=== PATIENT | male | born 2000 | race Caucasian/White ===

== ENCOUNTER 2022-05-09 23:12 | Observation (INO) | payer OTHER ==
[2022-05-09] MEDS ORDERED: Sodium Chloride 0.9% 1000 ML 1,000 ML IV STA (23:42)
[2022-05-10] LABS: Absolute Neutrophil Ct (ANC) 4.59 x10^3/uL (1.4-6.9); Basophil (Absolute #) 0.05 x10^3/uL (0-0.4); Eosinophil % 1.6 % (0.00-5.0); Eosinophil (Absolute #) 0.13 x10^3/uL (0-0.5); Hematocrit 43.7 % (42-50); Lymphocyte (Absolute #) 2.65 x10^3/uL (1.0-4.6); Lymphocytes % 32.9 % (24.0-44.0); Mean Cell Volume 87.6 fL (78-100); Mean Corpuscular Hemoglobin 30.1 pg (26-32); Mean Corpuscular Hgb Concent. 34.3 g/dL (32-36); Monocyte (Absolute #) 0.61 x10^3/uL (0.0-1.3); Monocytes % 7.6 % (0.0-12.0); Neutrophil % 57.1 % (36.0-66.0); Platelet Count 233 x10^3/uL (150-450); Red Blood Count 4.99 x10^6/uL (4.1-5.6); Red Cell Distribution Width 11.9 % (11.5-14.0); White Blood Count 8.1 x10^3/uL (4.0-10.5)
[2022-05-10] MEDS ORDERED: Sodium Chloride 0.9% 1000 ML 1,000 ML ONE (00:01)
[2022-05-10 00:14] LABS: ACETAMINOPHEN 13 ug/ml (10-30); ALBUMIN 4.2 g/dL (3.5-5.0); ALKALINE PHOSPHATASE 99 U/L (38-126); BLOOD UREA NITROGEN 9 mg/dL (9-20); CHLORIDE 105 mmol/L (98-107); Carbon Dioxide 23 mmol/L (22-30); Creatinine 1 0.66 mg/dL (0.66-1.25); EST GLOMERULAR FILTRATION RATE > 60.0 ML/MIN; ETHYL ALCOHOL < 10 mg/dL (0-10); Glucose 100 mg/dL (74-106); Potassium 3.7 mmol/L (3.5-5.1); SALICYLATE < 1.0 mg/dL (2-20); SGOT/AST 25 U/L (17-59); SGPT/ALT 20 U/L (0-50); SODIUM 137 mmol/L (137-145)
--- NOTE | 2022-05-10 00:46 | ERPHSYRPT ---
- History of Present Illness Time Seen by Provider: 05/09/22 23:19 Source: patient Exam Limitations: no limitations Patient Subjective Stated Complaint: pt states he took an unknown amount of his o wn medications and some of is room mates medications. Triage Nursing Assessment: pt alert and oriented, answers questions approp. pt arrive per ambulance and transfers to stretcher per slef. respiraions nonlabored. skin warm and dry. heart rate 80 on monitor, sinus rhythm. Physician History: 22 years old inmate is brought to the ER by EMS with PD after he admitted overdosing on some of his own medication and some of his friend meds almost an hour prior to arrival. Patient apparently took Norvasc, prazosin, Zoloft, Ke ppra unknown amount. Reports having mild chest tightness and minimal shortness of breath with feeling of grogginess/sleepiness. He is answering questions appropriately. Patient is not in any distress. Does report having similar attempts in the past. Reports doing this because he is frustrated and has worsening of depression. Timing/Duration: hour(s) (1) Suicidal thoughts: attempt, ingestion Associated Symptoms: depressed, frustrated, ingestion Previous symptoms: same symptoms as today Allergies/Adverse Reactions: No Known Drug Allergies Allergy (Verified 05/09/22 23:50) Home Medications: Levetiracetam 250 MG [Keppra 250 MG] 250 mg PO BID 05/09/22 [History] Prazosin HCl [Minipress] 1 mg PO HS 05/09/22 [History] Sertraline HCl 50 mg [Zoloft 50 mg Tablet] 50 mg PO DAILY 05/09/22 [History] Hx Tetanus, Diphtheria Vaccination/Date Given: Yes Hx Influenza Vaccination/Date Given: Yes Immunizations Up to Date: Yes Travel Risk - International Travel Have you traveled outside of the country in past 3 weeks: No - Coronavirus Screening Are you exhibiting any of the following symptoms?: No Close contact with a COVID-19 positive Pt in past 14-21 Days: No - Vaccine Status Have you recieved a Covid-19 vaccination: No - Past Medical History Neurological History: Seizures Other Medical History: heart murmer, 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 - Past Surgical History Past Surgical History: Yes - Social History Smoking Status: Former smoker Exposure to second hand smoke: No Drug Use: none Patient Lives Alone: No - Review of Systems Constitutional: No Symptoms Eyes: No Symptoms Ears, Nose, & Throat: No Symptoms Respiratory: Dyspnea Cardiac: Chest Pain Abdominal/Gastrointestinal: No Symptoms Genitourinary Symptoms: No Symptoms Musculoskeletal: No Symptoms Skin: No Symptoms Neurological: No Symptoms Psychological: Anxiety, Depression, Suicidal Ideations Endocrine: No Symptoms Hematologic/Lymphatic: No Symptoms Immunological/Allergic: No Symptoms - Nursing Vital Signs Nursing Vital Signs: Initial Vital Signs Temperature 98.3 F 05/09/22 23:16 Pulse Rate 78 05/09/22 23:16 Respiratory Rate 16 05/09/22 23:16 Blood Pressure 132/80 05/09/22 23:16 O2 Sat by Pulse Oximetry 96 05/09/22 23:16 Pain Scale Pain Intensity 6 - Physical Exam General Appearance: no apparent distress, alert, anxiety Eyes, Ears, Nose, Throat Exam: normal ENT inspection Neck Exam: normal inspection, non-tender, supple, full range of motion Respiratory Exam: normal breath sounds, lungs clear Cardiovascular Exam: regular rate/rhythm, normal heart sounds Gastrointestinal/Abdominal Exam: soft, normal bowel sounds, No tenderness Extremities Exam: normal inspection, normal range of motion Current Suicidality: has suicide plan Neurological Exam: alert, calm, oriented x 3, No normal mood/affect Appearance: appropriate appearance, appropriate insight, neat, no memory impairment Behavior/Eye Contact/Speech: alert & cooperative, cooperative, good eye contact Thoughts/Hallucinations: normal thought pattern, no apparent hallucination Skin Exam: normal color SpO2 Interpretation: normal SpO2: 96 O2 Delivery: Room Air - Course EKG Interpreted by Me: RATE (75), Sinus Rhythm, NORMAL AXIS, NORMAL INTERVALS, NORMAL QRS Ordered Tests: Active Orders 24 hr Category Date Time Status Film Technician STAT Care 05/09/22 23:43 Active EKG-ER Only STAT Care 05/09/22 23:42 Active IV Insertion STAT Care 05/09/22 23:42 Active NPO (ED) STAT Care 05/09/22 23:42 Active ACETAMINOPHEN Stat Lab 05/09/22 23:57 Completed CBC W DIFF Stat Lab 05/09/22 23:57 Completed CMP Stat Lab 05/09/22 23:57 Completed ETHYL ALCOHOL Stat Lab 05/09/22 23:57 Completed SALICYLATE Stat Lab 05/09/22 23:57 Completed TROPONIN Q4H Lab 05/09/22 00:03 Received TROPONIN Q4H Lab 05/10/22 03:45 Ordered TROPONIN Q4H Lab 05/10/22 07:45 Ordered UA W/RFX CULTURE Stat Lab 05/09/22 Ordered Urine Triage Profile Stat Lab 05/09/22 23:43 Ordered Transfer Order Routine Transfer 05/10/22 Ordered Medication Summary Discontinued Medications Generic Name Dose Route Start Last Admin Trade Name Lisandro PRN Reason Stop Dose Admin Sodium Chloride 1,000 mls @ 999 mls/hr 05/09/22 23:42 05/10/22 00:02 Sodium Chloride 0.9% 1000 Ml IV 05/10/22 00:42 999 mls/hr .Q1H1M STA Administration Sodium Chloride Confirm 05/10/22 00:01 Sodium Chloride 0.9% 1000 Ml Administered 05/10/22 00:02 Dose 1,000 mls @ ud .ROUTE .STK-MED ONE Lab/Rad Data: Laboratory Result Diagrams 05/09/22 23:57 05/09/22 23:57 Laboratory Results 05/09/22 05/09/22 05/09/22 Range/Units 23:57 23:57 00:03 WBC 8.1 (4.0-10.5) x10^3/uL RBC 4.99 (4.1-5.6) x10^6/uL Hgb 15.0 (12.5-18.0) g/dL Hct 43.7 (42-50) % MCV 87.6 (78-100) fL MCH 30.1 (26-32) pg MCHC 34.3 (32-36) g/dL RDW 11.9 (11.5-14.0) % Plt Count 233 (150-450) x10^3/uL MPV 9.0 (7.5-11.0) fL Gran % 57.1 (36.0-66.0) % Immature Gran % (Auto) 0.2 (0.00-0.4) % Nucleat RBC Rel Count 0.0 (0.00-0.1) % Eos # (Auto) 0.13 (0-0.5) x10^3/uL Immature Gran # (Auto) 0.02 (0.00-0.03) x10^3u/L Absolute Lymphs (auto) 2.65 (1.0-4.6) x10^3/uL Absolute Monos (auto) 0.61 (0.0-1.3) x10^3/uL Absolute Nucleated RBC 0.00 (0.00-0.01) x10^3u/L Lymphocytes % 32.9 (24.0-44.0) % Monocytes % 7.6 (0.0-12.0) % Eosinophils % 1.6 (0.00-5.0) % Basophils % 0.6 (0.0-0.4) % Absolute Granulocytes 4.59 (1.4-6.9) x10^3/uL Basophils # 0.05 (0-0.4) x10^3/uL Sodium 137 (137-145) mmol/L Potassium 3.7 (3.5-5.1) mmol/L Chloride 105 (98-107) mmol/L Carbon Dioxide 23 (22-30) mmol/L Anion Gap 13.0 (5-15) MEQ/L BUN 9 (9-20) mg/dL Creatinine 0.66 (0.66-1.25) mg/dL Estimated GFR > 60.0 ML/MIN Glucose 100 (74-106) mg/dL Calcium 9.0 (8.4-10.2) mg/dL Total Bilirubin 1.00 (0.2-1.3) mg/dL AST 25 (17-59) U/L ALT 20 (0-50) U/L Alkaline Phosphatase 99 (38-126) U/L Troponin I < 0.012 (0.000-0.034) ng/mL Serum Total Protein 7.0 (6.3-8.2) g/dL Albumin 4.2 (3.5-5.0) g/dL Salicylates < 1.0 L (2-20) mg/dL Acetaminophen 13 (10-30) ug/ml Ethyl Alcohol < 10 (0-10) mg/dL - Progress Progress: unchanged Progress Note: 05/10/22 00:43 22 years old is evaluated in the ER for intentional drug overdose. Patient is not in any distress on presentation. Stable vitals. Given fluid bolus. Poison control is called, recommended 10-hour observation before can be medically cleared. Recommended supportive care mostly. We will continue with gentle hydration. Lab work grossly unremarkable. Discussed with Dr. Roth and patient is being admitted for observation. Discussed with : Shantal Will see patient in: hospital (observation) Counseled pt/family regarding: lab results, diagnosis, need for follow-up - Departure Departure Disposition: Observation Clinical Impression: Intentional drug overdose, Depression with suicidal ideation Condition: Stable Critical Care Time: No [facility]: [facility] [Primary Care Provider] - Follow up/PCP as directed
[2022-05-10 02:07] LABS: Amphetamine,Urine NEGATIVE (NEGATIVE); Barbiturate,Urine NEGATIVE (NEGATIVE); Benzodiazepine,Urine NEGATIVE (NEGATIVE); Cocaine,Urine NEGATIVE (NEGATIVE); Methadone,Urine NEGATIVE (NEGATIVE); Opiate,Urine NEGATIVE (NEGATIVE); PCP,Urine NEGATIVE (NEGATIVE); THC,Urine NEGATIVE (NEGATIVE)
[2022-05-10 02:26] LABS: Appearance CLEAR (CLEAR); Bilirubin NEGATIVE (NEGATIVE); Dipstick done @ ? MAIN LAB; Glucose NEGATIVE (NEGATIVE); Ketones NEGATIVE (NEGATIVE); Nitrite NEGATIVE (NEGATIVE); Protein,Urine Dip NEGATIVE (Negative); RBC NEGATIVE Ery/ul (0-5); Urobilinogen 0.2 mg/dL (0-1)
[2022-05-10 02:27] LABS: Urine Cultured Indicated? NO
[2022-05-10 06:04] VITALS: O2SAT 96
[2022-05-10 07:12] VITALS: BP 129/72; PULSE 67
[2022-05-10 08:09] LABS: INFLUENZA A NEGATIVE (NEGATIVE); INFLUENZA B NEGATIVE (NEGATIVE); RESPIRATORY SYNCTIAL VIRUS NEGATIVE (Negative); SARS-CoV-2 Xpert Express NEGATIVE (NEGATIVE)
[2022-05-10] MEDS ORDERED: TORAdol 30 mg Injection IV PRN (08:55)
[2022-05-10] MEDS ORDERED: Zofran 4 MG/2 ML VIAL IV PRN (08:55)
[2022-05-10] MEDS ORDERED: Sodium Chloride 0.9% 1000 ML 1,000 ML IV SCH (08:55)
[2022-05-10] MEDS ORDERED: DUONEB 0.5-3 MG/3 ml Neb IH PRN (08:55)
[2022-05-10] MEDS ORDERED: PROTONIX 40 MG IV IV SCH (10:00)
== END 2022-05-10 11:59 | disposition home or self-care (01) ==
LOC: EEVIPCON 23:12 → ED 23:12 → MED SURG 05-10 08:48
PROVIDERS: ADMIT Family Medicine; ATTEND Family Medicine
DX: T46.1X2A Poisoning by calcium-channel blockers, intentional self-harm, initial encounter (principal); T44.6X2A Poisoning by alpha-adrenoreceptor antagonists, intentional self-harm, initial encounter; T42.6X2A Poisoning by other antiepileptic and sedative-hypnotic drugs, intentional self-harm, initial encounter; T14.91XA Suicide attempt, initial encounter; R06.02 Shortness of breath; R07.9 Chest pain, unspecified; F41.9 Anxiety disorder, unspecified; F32.A Depression, unspecified; Z79.899 Other long term (current) drug therapy; Z20.828 Contact with and (suspected) exposure to other viral communicable diseases
CPT/HCPCS: 0241U; 36000; 36415; 80053; 80307; 81015; 84484; 85025; 93005; 93041; 96360; 99285; G0378; G0480